=== PATIENT | male | born 1990 | race Asian ===

== ENCOUNTER 2024-07-10 01:59 | Emergency (ER) | payer BC ==
[2024-07-10 02:06] VITALS: BP 128/94; PULSE 70; RESP 19; TEMP 97.9; BMI 27.3
[2024-07-10] MEDS ORDERED: KETOROLAC TROMETHAMINE 60 MG/2 ML VIAL ONE (02:14)
[2024-07-10] MEDS: KETOROLAC TROMETHAMINE 60 MG/2 ML VIAL IM ONE (02:20)
[2024-07-10] MEDS ORDERED: DEXAMETHASONE SOD PHOSPHATE 10 MG/1 ML VIAL ONE (03:18)
[2024-07-10] MEDS: DEXAMETHASONE SOD PHOSPHATE 10 MG/1 ML VIAL IM ONE (03:20)
[2024-07-10] MEDS ORDERED: GABAPENTIN 300 MG CAPSULE ONE (03:21)
[2024-07-10] MEDS: GABAPENTIN 300 MG CAPSULE PO ONE (03:23)
== END 2024-07-10 03:34 | disposition home or self-care (01) ==
LOC: JER 01:59
PROC: 3E023GC Introduction of Other Therapeutic Substance into Muscle, Percutaneous Approach (ICD-10-PCS; principal; 2024-07-10)
PROC: 3E0233Z Introduction of Anti-inflammatory into Muscle, Percutaneous Approach (ICD-10-PCS; 2024-07-10)
DX: M25.512 Pain in left shoulder (principal); G62.9 Polyneuropathy, unspecified; M54.2 Cervicalgia
CPT/HCPCS: 99284-25; J1100